=== PATIENT | female | born 1995 | race African-American/Black ===

== ENCOUNTER → 2016-11-27 | Outpatient (CLI) | payer SELFPAY | LOC: RAD 13:59 | PROVIDERS: ATTEND Nurse Practitioner Women's Health | DX: Z34.82 Encounter for supervision of other normal pregnancy, second trimester (principal) | CPT/HCPCS: 76805 ==

== ENCOUNTER 2017-07-17 10:09 | Emergency (ER) | payer MEDICAID ==
--- NOTE | 2017-07-17 10:25 | ER Document Report ---
ED Medical Screen (RME) - General Chief Complaint: Vaginal Bleeding Stated Complaint: VAGINAL BLEEDING Time Seen by Provider: 07/17/17 10:22 Mode of Arrival: Ambulatory Information source: Patient, Friend TRAVEL OUTSIDE OF THE [place] IN LAST 30 DAYS: No - HPI Patient complains to provider of: vaginal bleeding Onset: This morning - pt had positive HPT last week and woke up this am and went to the bathroom and had vaginal bleding with clots - Related Data Allergies/Adverse Reactions: No Known Allergies Allergy (Verified 07/17/17 10:13) Past Medical History Renal/ Medical History: Denies: Hx Peritoneal Dialysis - Immunizations Immunizations up to date: Yes Hx Diphtheria, Pertussis, Tetanus Vaccination: Yes - 09/2013 Physical Exam - Vital signs Vitals: Temp Pulse Resp BP Pulse Ox 98.5 F 88 35 H 119/73 98 07/17/17 10:13 07/17/17 10:13 07/17/17 10:13 07/17/17 10:13 07/17/17 10:13 Course - Vital Signs Vital signs: Temp Pulse Resp BP Pulse Ox 98.5 F 88 35 H 119/73 98 07/17/17 10:13 07/17/17 10:13 07/17/17 10:13 07/17/17 10:13 07/17/17 10:13
[2017-07-17 10:57] LABS: ABSOLUTE BASOPHILS # (AUTO) 0.1 10^3/uL (0.0-0.2); ABSOLUTE EOSINOPHILS # (AUTO) 0.1 10^3/uL (0.0-0.6); ABSOLUTE LYMPHOCYTES (AUTO) 1.3 10^3/uL (0.5-4.7); ABSOLUTE MONOCYTES (AUTO) 0.4 10^3/uL (0.1-1.4); BASOPHILS % (AUTO) 1.3 % (0-2); EOSINOPHILS % (AUTO) 1.1 % (0-6); HEMATOCRIT 31.7 % (36.0-47.0); HEMOGLOBIN 9.8 g/dL (12.0-15.5); HGB HCT DIFFERENCE -2.3; LYMPHOCYTES % (AUTO) 26.3 % (13-45); MEAN CORPUSCULAR HEMOGLOBIN 23.7 pg (27.0-33.4); MEAN CORPUSCULAR HGB CONC 30.8 g/dL (32.0-36.0); MEAN CORPUSCULAR VOLUME 77 fl (80-97); MONOCYTES % (AUTO) 9.3 % (3-13); RED BLOOD COUNT 4.12 10^6/uL (3.72-5.28); WHITE BLOOD COUNT 4.8 10^3/uL (4.0-10.5)
[2017-07-17 11:04] LABS: ALANINE AMINOTRANSFERASE 19 U/L (9-52); ALBUMIN 4.5 g/dL (3.5-5.0); ALKALINE PHOSPHATASE 51 U/L (38-126); ANION GAP 12 (5-19); ASPARTATE AMINO TRANSFERASE 19 U/L (14-36); BILIRUBIN,DIRECT 0.3 mg/dL (0.0-0.4); BILIRUBIN,TOTAL 0.5 mg/dL (0.2-1.3); BLOOD UREA NITROGEN 10 mg/dL (7-20); CARBON DIOXIDE 27 mmol/L (22-30); CHLORIDE 104 mmol/L (98-107); CREATININE RESULT 0.65 mg/dL (0.52-1.25); GLUCOSE 94 mg/dL (75-110); POTASSIUM 3.9 mmol/L (3.6-5.0); SODIUM 142.9 mmol/L (137-145); TOTAL PROTEIN 7.6 g/dL (6.3-8.2)
[2017-07-17 13:07] LABS: APPEARANCE,URINE CLEAR; BILIRUBIN,URINE NEGATIVE (NEGATIVE); GLUCOSE, URINE NEGATIVE (NEGATIVE); KETONES,URINE NEGATIVE (NEGATIVE); LEUKOCYTE ESTERASE,URINE NEGATIVE (NEGATIVE); NITRITE,URINE NEGATIVE (NEGATIVE); PROTEIN,URINE NEGATIVE (NEGATIVE); URINE SPECIFIC GRAVITY 1.003; UROBILINOGEN,URINE NEGATIVE mg/dL (<2.0)
--- NOTE | 2017-07-17 13:15 | ER Document Report ---
ED General - General Chief Complaint: Vaginal Bleeding Stated Complaint: VAGINAL BLEEDING Time Seen by Provider: 07/17/17 10:22 Mode of Arrival: Ambulatory TRAVEL OUTSIDE OF THE [place] IN LAST 30 DAYS: No - HPI Patient complains to provider of: Vaginal bleeding Notes: Patient coming in for evaluation of vaginal bleeding. Patient states started day prior to arrival with multiple clots. Patient states that positive home test. Patient states last mental cycle approximately 4 weeks ago. Patient denies any fevers chills nausea vomiting diarrhea. Patient is resting comfortably upon my evaluation. - Related Data Allergies/Adverse Reactions: No Known Allergies Allergy (Verified 07/17/17 10:13) Past Medical History - General Information source: Patient, Friend - Social History Smoking Status: Never Smoker Chew tobacco use (# tins/day): No Frequency of alcohol use: None Drug Abuse: None Family History: Reviewed & Not Pertinent Renal/ Medical History: Denies: Hx Peritoneal Dialysis - Immunizations Immunizations up to date: Yes Hx Diphtheria, Pertussis, Tetanus Vaccination: Yes - 09/2013 Review of Systems - Review of Systems Constitutional: No symptoms reported EENT: No symptoms reported Cardiovascular: No symptoms reported Respiratory: No symptoms reported Gastrointestinal: No symptoms reported Genitourinary: No symptoms reported Female Genitourinary: Vaginal bleeding Musculoskeletal: No symptoms reported Skin: No symptoms reported Hematologic/Lymphatic: No symptoms reported Neurological/Psychological: No symptoms reported -: Yes All other systems reviewed and negative Physical Exam - Vital signs Vitals: Temp Pulse Resp BP Pulse Ox 98.5 F 88 35 H 119/73 98 07/17/17 10:13 07/17/17 10:13 07/17/17 10:13 07/17/17 10:13 07/17/17 10:13 Interpretation: Normal - General General appearance: Appears well, Alert - HEENT Head: Normocephalic, Atraumatic Eyes: Normal Pupils: PERRL - Respiratory Respiratory status: No respiratory distress Chest status: Nontender Breath sounds: Normal Chest palpation: Normal - Cardiovascular Rhythm: Regular Heart sounds: Normal auscultation Murmur: No - Abdominal Inspection: Normal Distension: No distension Bowel sounds: Normal Tenderness: Nontender Organomegaly: No organomegaly - Back Back: Normal, Nontender - Extremities General upper extremity: Normal inspection, Nontender, Normal color, Normal ROM , Normal temperature General lower extremity: Normal inspection, Nontender, Normal color, Normal ROM , Normal temperature, Normal weight bearing. No: Sandeep's sign - Neurological Neuro grossly intact: Yes Cognition: Normal Orientation: AAOx4 [place] Coma Scale Eye Opening: Spontaneous [place] Coma Scale Verbal: Oriented [place] Coma Scale Motor: Obeys Commands Vipul Coma Scale Total: 15 Speech: Normal Motor strength normal: LUE, RUE, LLE, RLE Sensory: Normal - Psychological Associated symptoms: Normal affect, Normal mood - Skin Skin Temperature: Warm Skin Moisture: Dry Skin Color: Normal Course - Re-evaluation Re-evalutation: 07/17/17 15:20 Patient shows chronic anemia however baseline for the patient. No signs of . More likely patient is beginning her initial cycle. Patient will be given Bentyl Motrin for pain control at home patient was discharged without any difficulty. The patient presents with abdominal pain without signs of peritonitis or other life-threatening or serious etiology. The patient appears stable for discharge and has been instructed to return immediately if the symptoms worsen in any way, or in 8-12hr if not improved for re-evaluation. The patient has been instructed to return if the symptoms worsen or change in any way. - Vital Signs Vital signs: Temp Pulse Resp BP Pulse Ox 98.4 F 80 18 120/77 100 07/17/17 13:30 07/17/17 13:30 07/17/17 13:30 07/17/17 13:30 07/17/17 13:30 - Laboratory Result Diagrams: 07/17/17 10:40 07/17/17 10:40 Laboratory results interpreted by me: 07/17/17 07/17/17 10:40 12:46 Hgb 9.8 L Hct 31.7 L MCV 77 L MCH 23.7 L MCHC 30.8 L RDW 16.0 H Urine Blood MODERATE H Discharge - Discharge Clinical Impression: Vaginal bleeding Condition: Good Disposition: HOME, SELF-CARE Instructions: Anti-Inflammatory Medication ([facility]), Vaginal Bleeding ([facility]) Additional Instructions: Take medication as prescribed your laboratory values today show no signs of or changes in your anemia however 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 Return to the ER symptoms worsen. Prescriptions: Ibuprofen [Motrin 600 mg Tablet] 600 mg PO Q8HP PRN #90 tablet PRN Reason: Dicyclomine HCl [Bentyl 20 mg Tablet] 20 mg PO QID #20 tablet Forms: Return to Work
[2017-07-17 13:31] VITALS: BP 120/77
== END 2017-07-17 13:31 | disposition home or self-care (01) ==
LOC: ER 10:09
DX: N93.8 Other specified abnormal uterine and vaginal bleeding (principal)
CPT/HCPCS: 36415; 51701; 80053; 81001; 81025; 84702; 85025; 99284

== ENCOUNTER 2018-06-11 22:15 | Emergency (ER) | payer SELFPAY ==
[2018-06-11] MEDS ORDERED: ACETAMINOPHEN 325 MG TABLET PO ONE (23:42)
--- NOTE | 2018-06-11 23:44 | ER Document Report ---
ED Medical Screen (RME) - General Chief Complaint: Passed Out Prior to Arrival Stated Complaint: PASSING OUT Time Seen by Provider: 06/11/18 23:41 Mode of Arrival: Ambulatory Information source: Patient Notes: 22-year-old female presents to ED for complaint of passing out at [employer]. She states she walked into the [employer] store and she felt like she was getting very hot and sweaty. She states she tried to drink her drink more before she could she woke up sitting on the floor. She states everybody in the [employer] saw her pass out. She now has pain in her left side of her face abrasion to the left fifth finger with pain in the finger and pain in her left knee. She is alert oriented respirations regular and unlabored speaking in full sentences and walking with a even steady gait while in the emergency room. She states she has no past medical history except for low iron. She states she is eating [employer] since she passed out. She does have a small abrasion to the fifth finger. She is tender to touch to the left side of her face. States she does not smoke does not drink does not use drugs and does not work. She states she lives alone with her child. I have greeted and performed a rapid initial assessment of this patient. A comprehensive ED assessment and evaluation of the patient, analysis of test results and completion of medical decision making process will be conducted by an additional ED providers. TRAVEL OUTSIDE OF THE [place] IN LAST 30 DAYS: No - Related Data Allergies/Adverse Reactions: No Known Allergies Allergy (Verified 07/17/17 10:13) Past Medical History Renal/ Medical History: Denies: Hx Peritoneal Dialysis - Immunizations Immunizations up to date: Yes Hx Diphtheria, Pertussis, Tetanus Vaccination: Yes - 09/2013 Physical Exam - Vital signs Vitals: Temp Pulse Resp BP Pulse Ox 98.9 F 88 16 113/55 L 100 06/11/18 22:48 06/11/18 22:48 06/11/18 22:48 06/11/18 22:48 06/11/18 22:48 Course - Vital Signs Vital signs: Temp Pulse Resp BP Pulse Ox 98.9 F 88 16 113/55 L 100 06/11/18 22:48 06/11/18 22:48 06/11/18 22:48 06/11/18 22:48 06/11/18 22:48
[2018-06-12 00:54] LABS: ABSOLUTE BASOPHILS # (AUTO) 0.1 10^3/uL (0.0-0.2); ABSOLUTE MONOCYTES (AUTO) 0.5 10^3/uL (0.1-1.4); ABSOLUTE NEUT (AUTO) 7.3 10^3/uL (1.7-8.2); BASOPHILS % (AUTO) 0.6 % (0-2); EOSINOPHILS % (AUTO) 0.1 % (0-6); HEMATOCRIT 32.6 % (36.0-47.0); HEMOGLOBIN 10.4 g/dL (12.0-15.5); MEAN CORPUSCULAR HEMOGLOBIN 24.1 pg (27.0-33.4); MEAN CORPUSCULAR VOLUME 75 fl (80-97); MONOCYTES % (AUTO) 5.8 % (3-13); PLATELET COUNT 269 10^3/uL (150-450); RED BLOOD COUNT 4.33 10^6/uL (3.72-5.28); RED CELL DISTRIBUTION WIDTH 18.4 % (11.5-14.0); SEGMENTED NEUTROPHILS % (AUTO) 82.5 % (42-78); TOTAL CELLS COUNTED % (AUTO) 100 %; WHITE BLOOD COUNT 8.8 10^3/uL (4.0-10.5)
[2018-06-12] MEDS ORDERED: NORMAL SALINE 1000 ML 1,000 ML IV ONE ×2 (01:04→01:52)
[2018-06-12 01:05] LABS: ALANINE AMINOTRANSFERASE 11 U/L (9-52); ALBUMIN 4.5 g/dL (3.5-5.0); ALKALINE PHOSPHATASE 55 U/L (38-126); ANION GAP 16 (5-19); ASPARTATE AMINO TRANSFERASE 20 U/L (14-36); BILIRUBIN,DIRECT 0.2 mg/dL (0.0-0.4); BILIRUBIN,TOTAL 1.2 mg/dL (0.2-1.3); BLOOD UREA NITROGEN 9 mg/dL (7-20); CALCIUM 9.5 mg/dL (8.4-10.2); CARBON DIOXIDE 19 mmol/L (22-30); CHLORIDE 100 mmol/L (98-107); GLUCOSE 236 mg/dL (75-110); POTASSIUM 3.8 mmol/L (3.6-5.0); SODIUM 135.3 mmol/L (137-145); TOTAL PROTEIN 8.1 g/dL (6.3-8.2)
[2018-06-12 01:20] LABS: APPEARANCE,URINE SLIGHTLY-CLOUDY; BILIRUBIN,URINE NEGATIVE (NEGATIVE); COLOR,URINE YELLOW; GLUCOSE, URINE >=500 mg/dL (NEGATIVE); KETONES,URINE 80 mg/dL (NEGATIVE); LEUKOCYTE ESTERASE,URINE SMALL (NEGATIVE); NITRITE,URINE NEGATIVE (NEGATIVE); PROTEIN,URINE NEGATIVE (NEGATIVE)
--- NOTE | 2018-06-12 02:11 | ER Document Report ---
ED Syncope and Near Syncope - General Mode of Arrival: Ambulatory Information source: Patient TRAVEL OUTSIDE OF THE [place] IN LAST 30 DAYS: No <SHEELA LAIRD - Last Filed: 06/12/18 02:56> <NAT BARRON - Last Filed: 06/12/18 03:37> - General Chief Complaint: Passed Out Prior to Arrival Stated Complaint: PASSING OUT Time Seen by Provider: 06/11/18 23:41 Notes: Patient is a 22-year-old female that presents to the emergency department today with complaints of a syncopal episode that occurred prior to arrival. Patient is and she mentions that in the past when she was she had syncopal events. Patient states she has had associated nausea and vomiting as well. (SHEELA LAIRD) - Related Data Allergies/Adverse Reactions: No Known Allergies Allergy (Verified 06/12/18 01:41) Past Medical History - General Information source: Patient - Social History Smoking Status: Current Every Day Smoker Cigarette use (# per day): Yes Frequency of alcohol use: None Drug Abuse: None Family History: Reviewed & Not Pertinent Patient has suicidal ideation: No Patient has homicidal ideation: No Renal/ Medical History: Denies: Hx Peritoneal Dialysis Surgical Hx: Negative - Immunizations Immunizations up to date: Yes Hx Diphtheria, Pertussis, Tetanus Vaccination: Yes - 09/2013 <SHEELA LAIRD - Last Filed: 06/12/18 02:56> Review of Systems - Review of Systems Constitutional: No symptoms reported EENT: No symptoms reported Cardiovascular: See HPI, Syncope Respiratory: No symptoms reported Gastrointestinal: See HPI, Nausea, Vomiting Genitourinary: No symptoms reported Female Genitourinary: No symptoms reported Musculoskeletal: No symptoms reported Skin: No symptoms reported Hematologic/Lymphatic: No symptoms reported Neurological/Psychological: denies: Headaches -: Yes All other systems reviewed and negative <SHEELA LAIRD - Last Filed: 06/12/18 02:56> Physical Exam <SHEELA LAIRD - Last Filed: 06/12/18 02:56> <NAT BARRON - Last Filed: 06/12/18 03:37> - Vital signs Vitals: Temp Pulse Resp BP Pulse Ox 98.9 F 88 16 113/55 L 100 06/11/18 22:48 06/11/18 22:48 06/11/18 22:48 06/11/18 22:48 06/11/18 22:48 - Notes Notes: Physical Exam: General: Alert, appears well. HEENT: Normocephalic. Atraumatic. PERRL. Extraocular movements intact. Oropharynx clear. Dry mucous membranes. Neck: Supple. Non-tender. Respiratory: No respiratory distress. Clear and equal breath sounds bilaterally. Cardiovascular: Regular rate and rhythm. Abdominal: Normal Inspection. Non-tender. No distension. Normal Bowel Sounds. Back: Non-tender. No deformity or step off. Extremities: Moves all four extremities. Upper extremities: Normal inspection. Normal ROM. Lower extremities: Normal inspection. No edema. Normal ROM. Neurological: Normal cognition. AAOx4. Normal speech. Psychological: Normal affect. Normal Mood. Skin: Warm. Dry. Normal color. (SHEELA LAIRD) Course - Laboratory Result Diagrams: 06/11/18 23:52 06/11/18 23:52 <SHEELA LAIRD - Last Filed: 06/12/18 02:56> - Laboratory Result Diagrams: 06/11/18 23:52 06/11/18 23:52 <NAT BARRON - Last Filed: 06/12/18 03:37> - Re-evaluation Re-evalutation: 06/12/18 03:34 Patient is a 22-year-old female who comes in after syncopal episode. Patient has 80+ ketones in urine and clinically appears dehydrated. She is feeling much better after fluids and taking p.o. Patient is approximately 6 weeks by dates and has been nauseated with this . Denies any bleeding or cramping. Would prefer to go home at this time. Will be discharged home with Reglan as needed for nausea. Return if any worsening or concerning symptoms. Understands agrees with plan. Stable for discharge. ( NAT BARRON) - Vital Signs Vital signs: Temp Pulse Resp BP Pulse Ox 98.9 F 88 16 113/55 L 100 06/11/18 22:48 06/11/18 22:48 06/11/18 22:48 06/11/18 22:48 06/11/18 22:48 - Laboratory Laboratory results interpreted by me: 06/11/18 06/11/18 06/11/18 23:47 23:52 23:52 Hgb 10.4 L Hct 32.6 L MCV 75 L MCH 24.1 L RDW 18.4 H Seg Neutrophils % 82.5 H Lymphocytes % 11.0 L Sodium 135.3 L Carbon Dioxide 19 L Glucose 236 H POC Glucose 271 H Serum HCG, Qual Urine Glucose (UA) Urine Ketones Urine Blood Urine Urobilinogen Ur Leukocyte Esterase 06/11/18 06/11/18 23:52 23:52 Hgb Hct MCV MCH RDW Seg Neutrophils % Lymphocytes % Sodium Carbon Dioxide Glucose POC Glucose Serum HCG, Qual POSITIVE H Urine Glucose (UA) >=500 H Urine Ketones 80 H Urine Blood SMALL H Urine Urobilinogen 4.0 H Ur Leukocyte Esterase SMALL H Discharge <SHEELA LAIRD - Last Filed: 06/12/18 02:56> <NAT BARRON - Last Filed: 06/12/18 03:37> - Discharge Clinical Impression: Dehydration Qualifiers: Weeks of gestation: less than 8 weeks Qualified Code(s): Z3A.01 - Less than 8 weeks gestation of Condition: Stable Disposition: HOME, SELF-CARE Instructions: ([facility]), Dehydration ([facility]) Prescriptions: Metoclopramide HCl [Reglan 10 mg Tablet] 1 - 2 tab PO ASDIR PRN #25 tablet PRN Reason: Forms: Return to Work Referrals: DOROTHY YOUNG MD [Primary Care Provider] - Follow up as needed Scribe Attestation: 06/12/18 03:36 I personally performed the services described in the documentation, reviewed and edited the documentation which was dictated to the scribe in my presence, and it accurately records my words and actions. (NAT BARRON) Scribe Documentation - Scribe Written by Pabloe:: Destiny Christina, 06/12/2018 [id number] acting as scribe for :: Ann <SHEELA LAIRD - Last Filed: 06/12/18 02:56>
[2018-06-12] MEDS ORDERED: ONDANSETRON ODT 4 MG TAB (6 TAB/ER DISP) PO PRN (03:34)
[2018-06-12 03:42] VITALS: BP 100/47
== END 2018-06-12 03:43 | disposition home or self-care (01) ==
LOC: ER 22:15
DX: O99.281 Endocrine, nutritional and metabolic diseases complicating pregnancy, first trimester (principal); E86.0 Dehydration; O21.9 Vomiting of pregnancy, unspecified; O26.891 Other specified pregnancy related conditions, first trimester; R55 Syncope and collapse; O99.331 Smoking (tobacco) complicating pregnancy, first trimester; F17.210 Nicotine dependence, cigarettes, uncomplicated; Z3A.01 Less than 8 weeks gestation of pregnancy
CPT/HCPCS: 99284; 96360; 96361; 36415; 82962; 84702; 84703; 85025; 80053; 81001; J7030

== ENCOUNTER 2018-08-12 00:01 | Emergency (ER) | payer SELFPAY ==
--- NOTE | 2018-08-12 01:25 | ER Document Report ---
ED General - General Mode of Arrival: Ambulatory Information source: Patient TRAVEL OUTSIDE OF THE [place] IN LAST 30 DAYS: No - General Chief Complaint: Headache Stated Complaint: WEAKNESS Time Seen by Provider: 08/12/18 01:12 Notes: Patient is a 23-year-old female, currently approximately 16 weeks presents to the emergency department complaining of a headache, nausea and lightheadedness. Patient states that she was in [employer] yesterday when she began to feel lightheaded due to the heat and had to sit down before proceeding to get groceries. Patient describes her headache as a tightness. Patient denies any chest pain, abdominal pain, vomiting, vaginal discharge, burning with urination or urinary frequency. Patient is . She states she is currently prescribed iron supplements but has recently ran out. (MARIAH KNAPP) - Related Data Allergies/Adverse Reactions: No Known Allergies Allergy (Verified 06/12/18 01:41) Past Medical History - General Information source: Patient - Social History Smoking Status: Unknown if Ever Smoked Family History: Reviewed & Not Pertinent - Immunizations Immunizations up to date: Yes Hx Diphtheria, Pertussis, Tetanus Vaccination: Yes - 09/2013 Review of Systems - Review of Systems Constitutional: No symptoms reported EENT: No symptoms reported Cardiovascular: See HPI, Lightheaded Respiratory: No symptoms reported Gastrointestinal: See HPI, Nausea Genitourinary: No symptoms reported Female Genitourinary: No symptoms reported Musculoskeletal: No symptoms reported Skin: No symptoms reported Hematologic/Lymphatic: No symptoms reported Neurological/Psychological: See HPI, Headaches Physical Exam - Vital signs Vitals: Temp Pulse Resp BP Pulse Ox 98.8 F 110 H 16 100/53 L 100 08/12/18 00:07 08/12/18 00:07 08/12/18 00:07 08/12/18 00:07 08/12/18 00:07 - Notes Notes: GENERAL: Alert, interacts well. No acute distress. HEAD: Normocephalic, atraumatic. EYES: Pupils equal, round, and reactive to light. Extraocular movements intact. ENT: Oral mucosa dry, tongue midline. NECK: Full range of motion. Supple. Trachea midline. LUNGS: Clear to auscultation bilaterally, no wheezes, rales, or rhonchi. No respiratory distress. HEART: Regular rate and rhythm. No murmurs, gallops, or rubs. ABDOMEN: Soft, non-tender. Non-distended. Bowel sounds present in all 4 quadrants. EXTREMITIES: Moves all 4 extremities spontaneously. Radial pulses 2/4 bilaterally. NEUROLOGICAL: Alert and oriented x3. Normal speech. PSYCH: Normal affect, normal mood. SKIN: Warm, dry, normal turgor. No rashes or lesions noted. (MARIAH KNAPP) Course - Re-evaluation Re-evalutation: 08/12/18 02:30 Patient well-appearing in no acute distress normal vitals during my exam. No abdominal pain or dysuria. Urine shows no signs of infection but will send off culture. Fluids provide emergency department as oral mucous membranes were mildly dry. Will provide Reglan for patient for antinausea medication. 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 Return to the emergency department for any other concerns Prescriptions: Metoclopramide HCl [Reglan 10 mg Tablet] 1 tab PO ASDIR PRN #25 tablet PRN Reason: Scribe Attestation: 08/12/18 22:05 I personally performed the services described in the documentation, reviewed and edited the documentation which was dictated to the scribe in my presence, and it accurately records my words and actions. (ESTRELLA CORTES) Scribe Documentation - Scribe Written by Destiny:: Destiny Ward, 08/12/2018 01:29 acting as scribe for :: Manny
[2018-08-12 02:16] LABS: APPEARANCE,URINE CLEAR; BILIRUBIN,URINE NEGATIVE (NEGATIVE); COLOR,URINE YELLOW; GLUCOSE, URINE NEGATIVE (NEGATIVE); KETONES,URINE NEGATIVE (NEGATIVE); LEUKOCYTE ESTERASE,URINE LARGE (NEGATIVE); NITRITE,URINE NEGATIVE (NEGATIVE); PROTEIN,URINE NEGATIVE (NEGATIVE); URINE SPECIFIC GRAVITY 1.003; UROBILINOGEN,URINE NEGATIVE mg/dL (<2.0)
[2018-08-12] MEDS: NORMAL SALINE 1000 ML 1,000 ML IV PRN ×2 (02:33→03:07)
[2018-08-12 04:04] VITALS: BP 117/87
== END 2018-08-12 04:08 | disposition home or self-care (01) ==
LOC: ER 00:01
DX: O99.280 Endocrine, nutritional and metabolic diseases complicating pregnancy, unspecified trimester (principal); E86.0 Dehydration; O26.899 Other specified pregnancy related conditions, unspecified trimester; R51 Headache; R11.0 Nausea; R42 Dizziness and giddiness; Z3A.00 Weeks of gestation of pregnancy not specified
CPT/HCPCS: 99285; 96360; 96361; 87086; 81001; J7030

== ENCOUNTER → 2018-09-19 | Outpatient (CLI) | payer SELFPAY ==
--- NOTE | 2018-09-19 13:48 | RADIOLOGY REPORT (SQ) ---
EXAM DESCRIPTION: U/S OB 14+ TRNABD 1GES W/O DOP COMPLETED DATE/TIME: 09/19/2018 1:21 pm REASON FOR STUDY: Z34.82 ENCOUNTER FOR SUPRVSN OF NORMAL , SECOND TRIMESTER Z34.82 ENCOUNT ER FOR SUPRVSN OF NORMAL , SECOND TRI COMPARISON: No previous this TECHNIQUE: Static and Dynamic grayscale imaging performed of gravid uterus using transabdominal appr oach. Additional selected color Doppler and spectral images recorded. All stored on PACS. LIMITATIONS: None. FINDINGS: FETUSES SEEN:1 EGA: 20 weeks 5 days Calculated using BPD,FL,HC,AC documented on images. No discrepancy with clinica l dates. TIFFANY: 02/01/2019 EFW: 364 grams PERCENTILE: Not calculated LEFTY: Largest pocket 4.9 cm PLACENTA: Developing anterior grade 1. No abruption or previa PRESENTATION: Cephalic. ANATOMY: HEART RATE: 162 beats per minute. FOUR CHAMBER HEART: Visualized. THREE VESSEL CORD: Yes. CORD INSERTION: Visualized. KIDNEYS AND BLADDER: Visualized. Appear normal. STOMACH: Visualized. Appears normal. SPINE: Normal as visualized. BRAIN AND LATERAL VENTRICLES: Limited visualization due to orientation OTHER: No other significant finding. MATERNAL ADNEXA: Maternal ovaries not visualized. CERVICAL LENGTH: 2.7 cm Closed. OTHER: No other significant finding. IMPRESSION: LIVING INTRAUTERINE . ESTIMATED GESTATIONAL AGE 20 weeks 5 days NO VISUALIZED ANOMALIES. Trimester of : Second trimester - 13 weeks 1 day to 27 weeks 6 days. TECHNICAL DOCUMENTATION: JOB ID: [id number] [employer]- All Rights Reserved Reading location - IP/workstation name: [facility]
== END ==
LOC: RAD 13:08
PROVIDERS: ATTEND Nurse Practitioner
DX: Z34.82 Encounter for supervision of other normal pregnancy, second trimester (principal)
CPT/HCPCS: 76805

== ENCOUNTER 2018-12-22 01:45 | Outpatient (CLI) | payer MEDICAID ==
[2018-12-22 02:25] LABS: APPEARANCE,URINE CLEAR; BILIRUBIN,URINE NEGATIVE (NEGATIVE); COLOR,URINE YELLOW; GLUCOSE, URINE NEGATIVE (NEGATIVE); KETONES,URINE NEGATIVE (NEGATIVE); LEUKOCYTE ESTERASE,URINE NEGATIVE (NEGATIVE); NITRITE,URINE NEGATIVE (NEGATIVE); PROTEIN,URINE NEGATIVE (NEGATIVE); URINE SPECIFIC GRAVITY 1.006
[2018-12-22 02:38] LABS: URINE AMPHETAMINES SCREEN NEGATIVE; URINE BARBITURATES SCREEN NEGATIVE; URINE BENZODIAZEPINES SCREEN NEGATIVE; URINE COCAINE SCREEN NEGATIVE; URINE MARIJUANA (THC) SCREEN NEGATIVE; URINE METHADONE SCREEN NEGATIVE; URINE PHENCYCLIDINE SCREEN NEGATIVE
--- NOTE | 2018-12-22 04:13 | Non Stress Test Report ---
Non Stress Test Datetime Report Generated by CPN: 12/22/2018 04:13 DEMOGRAPHIC Test Number: 1 EGA NST: 34.2 INDICATION Indication for Study: Ordered by Provider MONITORING Monitor Explained: Monitor Explained; Test Explained; Patient Verbalized Understanding Time on Monitor: 12/22/2018 02:04 Time off Monitor: 12/22/2018 02:50 NST Duration: 46 NST INTERVENTIONS NST Interventions: PO Hydration Physician Notified NST: Dr Guerra BABY A: [id number] BABY A Movement : Present Contraction Frequency : irregular FHR Baseline : 135 Accelerations : 15X15 Decelerations : None Variability : Moderate 6-25bpm NST Review: Meets Criteria for Reactive NST NST Review and Verified By : SONYA Ackerman NST Results: Reactive NST REPORT Report Trigger: Send Report
== END 2018-12-22 04:10 | disposition home or self-care (01) ==
LOC: LC 01:45
PROVIDERS: ATTEND Obstetrics & Gynecology
PROC: 4A1HXCZ Monitoring of Products of Conception, Cardiac Rate, External Approach (ICD-10-PCS; principal; 2018-12-22)
DX: O46.93 Antepartum hemorrhage, unspecified, third trimester (principal); O47.03 False labor before 37 completed weeks of gestation, third trimester; Z3A.34 34 weeks gestation of pregnancy
CPT/HCPCS: 59025; 80307; 81001

== ENCOUNTER 2019-01-24 03:16 | Inpatient (IN) | payer MEDICAID ==
[~2019-01-24 03:16] MED LIST: IRON DEXTRAN COMPLEX 25 MG in SYRINGE, DISPOSABLE, 1 EACH IV PRN; IRON DEXTRAN COMPLEX 975 MG in NORMAL SALINE 500 ML IV PRN; NORMAL SALINE 250 ML IV PRN
[2019-01-24 03:48] LABS: APPEARANCE,URINE CLEAR; BILIRUBIN,URINE NEGATIVE (NEGATIVE); COLOR,URINE YELLOW; GLUCOSE, URINE NEGATIVE (NEGATIVE); KETONES,URINE NEGATIVE (NEGATIVE); LEUKOCYTE ESTERASE,URINE TRACE (NEGATIVE); NITRITE,URINE NEGATIVE (NEGATIVE); PROTEIN,URINE NEGATIVE (NEGATIVE); UROBILINOGEN,URINE NEGATIVE mg/dL (<2.0)
[2019-01-24 04:07] LABS: URINE AMPHETAMINES SCREEN NEGATIVE; URINE BARBITURATES SCREEN NEGATIVE; URINE BENZODIAZEPINES SCREEN NEGATIVE; URINE COCAINE SCREEN NEGATIVE; URINE MARIJUANA (THC) SCREEN NEGATIVE; URINE METHADONE SCREEN NEGATIVE; URINE PHENCYCLIDINE SCREEN NEGATIVE
--- NOTE | 2019-01-24 04:08 | Non Stress Test Report ---
Non Stress Test Datetime Report Generated by CPN: 01/24/2019 04:08 DEMOGRAPHIC Test Number: 2 EGA NST: 39.0 INDICATION Indication for Study: Ordered by Provider URINE RESULTS Urine Protein, NST: Negative Urine Ketones - NST: Negative Urine Glucose - NST: Negative Urine Blood - NST: Negative MONITORING Monitor Explained: Monitor Explained; Test Explained; Patient Verbalized Understanding Time on Monitor: 01/24/2019 03:31 Time off Monitor: 01/24/2019 04:02 NST Duration: 31 NST INTERVENTIONS NST Interventions: PO Hydration; Reposition Patient Physician Notified NST: Dr. Younger BABY A: [id number] BABY A Movement : Present Contraction Frequency : 4-5.5 FHR Baseline : 135 Accelerations : 15X15 Decelerations : None Variability : Moderate 6-25bpm NST Review: Meets Criteria for Reactive NST NST Review and Verified By : Vanda Garsia RN NST Results: Reactive NST REPORT Report Trigger: Send Report
[2019-01-24] MEDS ORDERED: RINGERS SOLUTION,LACTATED 1,000 ML IV ONE (05:26)
[2019-01-24] MEDS ORDERED: RINGERS SOLUTION,LACTATED 1,000 ML IV PRN (05:26)
[2019-01-24] MEDS ORDERED: PENICILLIN G POTASSIUM 5,000,000 UNIT in DEXTROSE 5%-WATER 100 ML IV ONE (05:26)
[2019-01-24] MEDS ORDERED: MISOPROSTOL 0.2 MG TABLET ONE (05:27)
[2019-01-24] MEDS ORDERED: PENICILLIN G-K 5 MILLION UNIT VIAL ONE ×2 (05:28→09:51)
[2019-01-24] MEDS ORDERED: LIDOCAINE 1% INJ-PF (10 MG/ML) 30 ML SDV ONE (05:28)
[2019-01-24] MEDS ORDERED: OXYTOCIN/NORMAL SALINE 20 UNIT/1,000 ML RTUINJ ONE (05:28)
[2019-01-24 06:54] LABS: ABSOLUTE LYMPHOCYTES (AUTO) 1.1 10^3/uL (0.5-4.7); ABSOLUTE MONOCYTES (AUTO) 0.8 10^3/uL (0.1-1.4); ABSOLUTE NEUT (AUTO) 4.7 10^3/uL (1.7-8.2); BASOPHILS % (AUTO) 0.5 % (0-2); EOSINOPHILS % (AUTO) 0.7 % (0-6); HEMATOCRIT 29.8 % (36.0-47.0); HEMOGLOBIN 9.8 g/dL (12.0-15.5); LYMPHOCYTES % (AUTO) 16.6 % (13-45); MEAN CORPUSCULAR HEMOGLOBIN 26.2 pg (27.0-33.4); MEAN CORPUSCULAR HGB CONC 32.9 g/dL (32.0-36.0); MEAN CORPUSCULAR VOLUME 80 fl (80-97); MONOCYTES % (AUTO) 11.7 % (3-13); PLATELET COUNT 156 10^3/uL (150-450); RED BLOOD COUNT 3.74 10^6/uL (3.72-5.28); RED CELL DISTRIBUTION WIDTH 22.5 % (11.5-14.0); SEGMENTED NEUTROPHILS % (AUTO) 70.5 % (42-78); TOTAL CELLS COUNTED % (AUTO) 100 %; WHITE BLOOD COUNT 6.6 10^3/uL (4.0-10.5)
--- NOTE | 2019-01-24 07:34 | Admission Physical ---
Datetime Report Generated by CPN: 01/24/2019 07:34 CURRENT ADMISSION Chief Complaint: Uterine Contractions Indication for Induction: Not Applicable Admit Impression : Term, Intrauterine ; Active Labor Admit Plan: Admit to Unit; Initiate Labor Protocol ALLERGIES Medication Allergies: No Medication Allergies: No Known Allergies (01/24/2019) Latex: No Latex Allergies OBSTETRICAL HISTORY EDC: 01/31/2019 00:00 : 3 Para: 2 Term: 2 : 0 SAB: 0 IAB: 0 Ectopic: 0 Livin Cesareans: 0 VBACs: 0 Multiple Births: 0 Gestational Diabetes: No Rh Sensitization: No Incompetent Cervix: No DARRELL: No Infertility: No ART Treatment: No Uterine Anomaly: No IUGR: No Hx Previous C/S: No Macrosomia: No Hx Loss/Stillborn: No PIH: No Hx : No Placenta Previa/Abruption: No Depression/PP Depression: Yes PTL/PROM: No Post Hemorrhage: No Current Procedures: Ultrasound; NST Obstetrical History Comments: G1-01/02/14 female @ 39.1wks 6lbs 11oz G2-03/22/17 female @ term 5lbs 11oz G3-Current SEE RECORDS Alcohol: No Marijuana : No Cocaine: No Other Illicit Drugs: No Cigarettes: Never Smoker. [id number] MEDICAL HISTORY Diabetes: No Blood Transfusion: No Pulmonary Disease (Asthma, TB): No Breast Disease: No Hypertension: No Tube Builder Surgery: No Heart Disease: No Hosp/Surgery: Yes Autoimmune Disorder: No Anesthetic Complications: No Kidney Disease: No Abnormal Pap Smear: No Neuro/Epilepsy: No Psychiatric Disorders: No Other Medical Diseases: Yes Hepatitis/Liver Disease: No Significant Family History: No Varicosities/Phlebitis: No Trauma/Violence : No Thyroid Dysfunction: No Medical History Comments: Childbirth x 2; Hx PPD, Anemia-gets iron transfusions INFECTIOUS HISTORY Gonorrhea: No Genital Herpes: No Chlamydia: Yes Tuberculosis: No Syphilis: No Hepatitis: No HIV/AIDS Exposure: No Rash or Viral Illness: No HPV: No Infectious History Comments: Chlamydia-08/2018-SURAJ negative; PHYSICAL EXAM General: Normal HEENT: Normal Neurologic: Normal Thyroid: Normal Heart: Normal Lungs: Normal Breast: Normal Back: Normal Abdomen: Normal Genitourinary Exam: Normal Extremities: Normal DTRs: Normal Pelvic Type: Adequate Vital Signs: Reviewed; Within Normal Limits VAGINAL EXAM Dilatation: 5 Effacement: 80 Station: -2 Contraction Comments: q 6 min MEMBRANES Membranes: Intact FETUS A EGA: 39.0 Monitoring: External US FHR- Baseline: 120-130s Variability: Moderate 6-25bpm Accelerations: 15X15 Decelerations: None FHR Category: Category I Admit Comment: Pt presented tp L_D c/o contractions. Her cervical exam was 3 cm upon arrival. She walked and progressed to 5 cm. GBS Positive. PLANS FOR LABOR AND DELIVERY Labor and Delivery: None Pain Management: Epidural Feeding Preference: Both Benefit of Breast Feed Discussed: Yes Circumcision: No INFORMED CONSENT Signature: with User ID: [email or web address]
[2019-01-24] MEDS ORDERED: LIDOCAINE 1.5%/EPINEPHRINE INJ 5 ML AMP ONE (08:36)
[2019-01-24] MEDS ORDERED: FENTANYL/BUPIVACAINE/NS/PF 300 MCG/150 ML RTUINJ EPI ONE (08:36)
[2019-01-24] MEDS ORDERED: BUPIVACAINE HCL 0.25 % INJ/PF (2.5 MG/1 ML) 30 ML VIAL ONE (08:36)
[2019-01-24] MEDS ORDERED: EPHEDRINE SULFATE INJ 50 MG/1 ML AMPULE ONE (08:36)
[2019-01-24] MEDS ORDERED: PENICILLIN G POTASSIUM 2,500,000 UNIT in DEXTROSE 5%-WATER 50 ML IV SCH (09:28)
--- NOTE | 2019-01-24 10:14 | L&D Progress Notes ---
PROGRESS NOTES Datetime Report Generated by CPN: 01/24/2019 10:14 PROGRESS NOTE Impression: Normal Progression of Labor; Reactive Non Stress Test Procedures: Artificial ROM; Sterile Vag Exam Plan: Continue Present Management; Augmentation Informed Consent Obtained: Vaginal Delivery Vital Signs : Reviewed; Within Normal Limits Comment: VE= 4-5/70/vt/0, AROM clear fluid,comfortable with epidural, irreg uc's. Cat 1 strip Plan: Start Pitocin augmentation, monitor, anticipate VAGINAL EXAM Dilatation: 5 Effacement: 80 Station: -2 Contractions: q 6 min LAST VAGINAL EXAM-NURSING Dilitation: 4.5 Dilitation: 5.0 Dilitation: 3.5 Dilitation: 3.0 Dilitation: 3.0 Effacement: 70 Effacement: 80 Effacement: 75 Effacement: 60 Effacement: 60 Station: 0 Station: -2 Station: -2 Station: -2 Station: -2 Contractions: irritability Contractions: irritability Contractions: irritability Contractions: irritability MEMBRANES Membranes: Intact FETUS A Monitoring: External US : 39.0 SIGNATURE SIGNATURE: [id number];[id number];[id number] SIGNATURE: [id number];[id number] SIGNATURE: [id number] SIGNATURE: [id number] Assignment: Elizabeth La MD Signature: with User ID: [email or web address] : with User ID: [email or web address]
[2019-01-24] MEDS ORDERED: OXYTOCIN/NORMAL SALINE 20 UNIT/1,000 ML RTUINJ IV PRN ×2 (11:13→14:00)
[2019-01-24] MEDS ORDERED: TERBUTALINE SULFATE INJ/PF 1 MG/1 ML SDV ONE (12:35)
[2019-01-24] MEDS ORDERED: METHYLERGONOVINE MALEATE INJ/PF 0.2 MG/1 ML AMPULE ONE (13:38)
[2019-01-24] MEDS ORDERED: METHYLERGONOVINE MALEATE INJ/PF 0.2 MG/1 ML AMPULE IM ONE (13:38)
[2019-01-24] MEDS ORDERED: PROMETHAZINE HCL 25 MG SUPP.RECT PR PRN (14:00)
[2019-01-24] MEDS ORDERED: BENZOCAINE/MENTHOL AEROSOL SPRAY 56 ML TOP PRN (14:00)
[2019-01-24] MEDS ORDERED: PROMETHAZINE HCL 25 MG TABLET PO PRN (14:00)
[2019-01-24] MEDS ORDERED: NA PHOS,M-B/NA PHOS,DI-BA (ADULT) 133 ML ENEMA PR PRN (14:00)
[2019-01-24] MEDS ORDERED: MISOPROSTOL 0.2 MG TABLET PR PRN (14:00)
[2019-01-24] MEDS ORDERED: ACETAMINOPHEN 650 MG SUPP.RECT PR PRN (14:00)
[2019-01-24] MEDS ORDERED: MAGNESIUM HYDROXIDE SUSP 30 ML UDCUP PO PRN (14:00)
[2019-01-24] MEDS ORDERED: GLYCERIN/WITCH HAZEL LEAF 1 EACH MED..PAD TP PRN (14:00)
[2019-01-24] MEDS ORDERED: DIPH/PERTUSS(ACELL)/TETANUS VAC/PF 0.5 ML SYR (>=10YO) IM PRN (14:00)
[2019-01-24] MEDS ORDERED: PSEUDOEPHEDRINE HCL 30 MG TABLET PO PRN (14:00)
[2019-01-24] MEDS ORDERED: DIPHENHYDRAMINE HCL 25 MG CAPSULE PO PRN (14:00)
[2019-01-24] MEDS ORDERED: PROMETHAZINE HCL INJ 25 MG/1 ML VIAL IV PRN (14:00)
[2019-01-24] MEDS ORDERED: DIBUCAINE 1% OINTMENT 56 GM TP PRN (14:00)
[2019-01-24] MEDS ORDERED: ACETAMINOPHEN WITH CODEINE #3 TABLET PO PRN ×2 (14:00)
[2019-01-24] MEDS ORDERED: MEASLES,MUMPS&RUBELLA VACC/PF 0.5 ML VIAL SUBCUT PRN (14:00)
[2019-01-24] MEDS ORDERED: METHYLERGONOVINE MALEATE INJ/PF 0.2 MG/1 ML AMPULE IM PRN (14:00)
--- NOTE | 2019-01-24 15:57 | Delivery Summary ---
Del Sum A-C Datetime Report Generated by CPN: 01/24/2019 15:56 DELIVERY PERSONNEL DELIVERY PERSONNEL: [id number] Delivery Doctor:: Elizabeth La MD Nurse Switch Foreman Certified:: Margaux Robledo CNM Labor and Delivery Nurse:: Artis Cheney RNafter school program director Nurse:: Dilma Gallegos RN Nursery Nurse:: Irene Vazquez RN Nursery Nurse:: Barbie James RN Student Observers:: Temitope HYLTON RN Aviculturist/ROPE TWISTING MACHINE OPERATOR: Tamiko Smith CNA II Additional Personnel: : Kayla Cardenas, RNC MATERNAL INFORMATION Delivery Anesthesia: Epidural Medications After Delivery: Pitocin Bolus-Please Comment; Methergine 0.2mg IM; Other-Please Comment Meds After Delivery Comment: Pitocin 20 units in 1000 ml nss open for bolus, cytotec 1000 mcg placed rectally per provider Maternal Complications: None Provider Comments: Care of patient to [facility] after delivery of baby, spont delivery of grossly nl intact placenta with calcifications, cord blood to lab, uterine atony resolved with massage, 1000mcg of cytotec, Pitocin and Methergine 0.2 mg IM, atony resolved, superficial lacerations not requiring suture, cervix intact, baby doing well, crying and moving all extremeties well, baby in recovery in stable condition LABOR SUMMARY EDC: 01/31/2019 00:00 No. Babies in Womb: 1 Attempted: No Labor Anesthesia: Epidural LABOR INFORMATION Reason for Induction: Not Applicable Onset of Labor: 01/24/2019 10:04 Complete Dilatation: 01/24/2019 12:40 Oxytocin: Augmentation Group B Beta Strep: Positive Antibiotics # of Doses: 2 Antibiotics Time of Last Dose: 944 Name of Antibiotic Given: Penicillin Steroids Given: None Reason Steroids Not Administered: Not Applicable MEMBRANES Membranes Rupture Method: Artificial Rupture of Membranes: 01/24/2019 10:04 Length of Rupture (hr): 3.42 Amniotic Fluid Color: Clear Amniotic Fluid Amount: Small Amniotic Fluid Odor: Normal STAGES OF LABOR Stage 1 hr: 2 Stage 1 min: 36 Stage 2 hr: 0 Stage 2 min: 49 Stage 3 hr: 0 Stage 3 min: 0 Total Time in Labor hr: 3 Total Time in Labor min: 25 VAGINAL DELIVERY Episiotomy: None Laceration #1: None Laceration Extension #1: N/A Laceration Repair: No Sponge Count Correct: N/A Sharps Count Correct: N/A CSECTION DELIVERY Primary Indication: N/A Secondary Indication: N/A CSection Incidence: N/A Labor: N/A Elective: N/A CSection Incision: N/A BABY A INFORMATION Delivery Date/Time: 01/24/2019 13:29 Method of Delivery: Vaginal Born in Route : No : N/A Forceps: N/A Vacuum Extraction: Successful Shoulder Dystocia : No PRESENTATION/POSITION BABY A Presentation: Cephalic Cephalic Presentation: Vertex Vertex Position: Right Occipital Anterior Breech Presentation: N/A PLACENTA INFORMATION BABY A Placenta Delivery Time : 01/24/2019 13:29 Placenta Method of Delivery: Spontaneous Placenta Status: Delivered SCORES BABY A Heart Rate 1 min: >100 bpm Resp Effort 1 min: Good Cry Reflex Irritability 1 min: Cough or Sneeze or Pulls Away Muscle Tone 1 min: Active Motion Color 1 min: Blue/Pale Resuscitation Effort 1 min: Tactile Stimulation SCORE 1 MIN: 8 Heart Rate 5 min: >100 bpm Resp Effort 5 min: Good Cry Reflex Irritability 5 min: Cough or Sneeze or Pulls Away Muscle Tone 5 min: Active Motion Color 5 min: Body [place], Extremities Blue Resuscitation Effort 5 min: N/A SCORE 5 MIN: 9 Resuscitation Effort 10 min: N/A INFORMATION BABY A Gestational Age at Delivery: 39.0 Gestational Status: Full Term- 39- 40.6 Weeks Outcome : Liveborn Infant Condition : Stable Sex: Male IDENTIFICATION BABY A Infant Verification Date/Time: 01/24/2019 14:35 ID Band Number: [id number] Mother's Name Verified: Yes RN Verifying Infant: J OZARD, RN/ BL ROULUND, RN WEIGHT/LENGTH BABY A Birthweight (gm): 2810 Weight (lb): 6 Infant Weight (oz): 3 Infant Length (in): 19.25 Infant Length (cm): 48.90 CORD INFORMATION BABY A No. Cord Vessels: 3 Nuchal Cord : N/A Cord Blood Taken: Yes-For Storage (Mom's Blood type +) Suction: None ASSESSMENT BABY A Complications: Extended Bradycardia; Multiple Late Decels; Multiple Variable Decels Skin to Skin: Yes BABY B INFORMATION : N/A SIGNATURES Assignment: Elizabeth La MD Signature: with User ID: [email or web address] : with User ID: [email or web address]
[2019-01-24] MEDS: FERROUS SULFATE 325 MG TABLET PO SCH (17:31)
[2019-01-24] MEDS: DOCUSATE SODIUM 100 MG CAPSULE PO SCH (17:31)
[2019-01-24] MEDS ORDERED: FAMOTIDINE 20 MG TABLET PO SCH (22:00)
[2019-01-24] MEDS: IBUPROFEN 800 MG TABLET PO SCH (22:18)
[2019-01-25] MEDS: IBUPROFEN 800 MG TABLET PO SCH ×3 (06:06→21:28)
[2019-01-25 08:27] LABS: HEMATOCRIT 28.1 % (36.0-47.0); HEMOGLOBIN 9.2 g/dL (12.0-15.5); MEAN CORPUSCULAR HEMOGLOBIN 26.1 pg (27.0-33.4); MEAN CORPUSCULAR HGB CONC 32.7 g/dL (32.0-36.0); MEAN CORPUSCULAR VOLUME 80 fl (80-97); PLATELET COUNT 144 10^3/uL (150-450); RED BLOOD COUNT 3.52 10^6/uL (3.72-5.28); RED CELL DISTRIBUTION WIDTH 22.9 % (11.5-14.0); WHITE BLOOD COUNT 7.6 10^3/uL (4.0-10.5)
--- NOTE | 2019-01-25 08:51 | PDOC PROGRESS REPORT ---
Subjective-OB Progress Note for:: 01/25/19 Physical Exam (OB) Vital Signs: Temp Pulse Resp BP Pulse Ox 97.4 F 77 16 105/55 L 98 01/25/19 07:23 01/25/19 07:23 01/25/19 07:23 01/25/19 07:23 01/25/19 07:23 Intake & Output 01/24/19 01/25/19 01/26/19 06:59 06:59 06:59 Intake Total 200 Balance 200 Weight 70.8 kg - PIH/Pre-Eclampsia DTR's: 2 + Clonus: Negative Headache: Absent Epigastric Pain: No Visual Changes: No - Lochia Lochia Amount: Scant < 10 ml Lochia Color: Rubra/Red - Abdomen Description: Soft, Round Hernia Present: No Bowel Sounds: Normoactive Flatus Presence: Present Stool: No Fundal Description: Firm, Midline Fundal Height: u/u - u/2 Objective-Diagnostic Laboratory: 01/25/19 07:50 01/25/19 07:50 WBC 7.6 RBC 3.52 L Hgb 9.2 L Hct 28.1 L MCV 80 MCH 26.1 L MCHC 32.7 RDW 22.9 H Plt Count 144 L
[2019-01-25] MEDS: DOCUSATE SODIUM 100 MG CAPSULE PO SCH ×2 (09:58→17:11)
[2019-01-25] MEDS: PRENATAL VITAMIN W DHA CAPSULE PO SCH (09:58)
[2019-01-25] MEDS: FERROUS SULFATE 325 MG TABLET PO SCH ×2 (09:58→17:11)
[2019-01-25] MEDS ORDERED: (PENDING PHARMACY ID) (Prenatal No122/Iron/Folic Acid [Prenatal Multi Tablet] 1 TAB) PO SCH (10:00)
[2019-01-25] MEDS ORDERED: SENNOSIDES/DOCUSATE 8.6-50 MG 1 EACH TABLET PO SCH (10:00)
[2019-01-26] MEDS: IBUPROFEN 800 MG TABLET PO SCH ×2 (05:03→13:19)
[2019-01-26 09:51] VITALS: BP 111/66
[2019-01-26] MEDS: DOCUSATE SODIUM 100 MG CAPSULE PO SCH (09:57)
[2019-01-26] MEDS: FERROUS SULFATE 325 MG TABLET PO SCH (09:57)
[2019-01-26] MEDS: PRENATAL VITAMIN W DHA CAPSULE PO SCH (09:57)
--- NOTE | 2019-01-26 10:59 | PDOC DISCHARGE SUMMARY ---
Final Diagnosis Discharge Date: 01/26/19 - Final Diagnosis (1) Anemia Is this a current diagnosis for this admission?: Yes (2) Delivery normal Is this a current diagnosis for this admission?: Yes (3) History of depression Is this a current diagnosis for this admission?: No Discharge Data - Discharge Medication Prescriptions: Ibuprofen [Motrin 800 mg Tablet] 800 mg PO Q8HP PRN #60 tablet PRN Reason: Home Medications: No122/Iron/Folic Acid [ Multi Tablet] 1 tab PO DAILY 12/22/18 Ferrous Sulfate [Feosol 325 mg Tablet] 325 mg PO BID tablet 01/26/19 Ibuprofen [Motrin 800 mg Tablet] 800 mg PO Q8HP PRN #60 tablet 01/26/19 Procedures: NST Intrapartum Procedure(s): Spontaneous Vaginal Delivery - Diagnosis Test Laboratory: Temp Pulse Resp BP Pulse Ox 98.4 F 66 20 111/66 100 01/26/19 09:50 01/26/19 09:50 01/26/19 09:50 01/26/19 09:50 01/26/19 09:50 01/24/19 01/24/19 01/25/19 03:28 06:33 07:50 RBC 3.74 3.52 L Hgb 9.8 L 9.2 L Hct 29.8 L 28.1 L Urine Opiates Screen NEGATIVE - Discharge information/Instructions Discharge Activity: Balance Activity w/Rest, Pelvic Rest Discharge Diet: Regular Disposition: HOME, SELF-CARE Follow up with: [facility] in: 4, Weeks
[2019-01-26] MEDS ORDERED: MEDROXYPROGESTERONE ACET INJ 150 MG/1 ML VIAL IM ONE (11:30)
== END 2019-01-26 15:55 | disposition home or self-care (01) | DRG 807 ==
LOC: LC 03:16 → LR 05:29 → 2S 16:05
PROVIDERS: ADMIT Obstetrics & Gynecology; ATTEND Obstetrics & Gynecology
PROC: 10E0XZZ Delivery of Products of Conception, External Approach (ICD-10-PCS; principal; 2019-01-24)
DX: O99.824 Streptococcus B carrier state complicating childbirth (principal); Z37.0 Single live birth; O76 Abnormality in fetal heart rate and rhythm complicating labor and delivery; O75.89 Other specified complications of labor and delivery; Z3A.39 39 weeks gestation of pregnancy
CPT/HCPCS: 36415; 59025; 80307; 81005; 85025; 85027; 86592; 86850; 86900; 86901; J1050; J1750; J2210; J2540; J2590; J3010; J3105; J3490; J7040

== ENCOUNTER 2019-05-27 15:21 | Emergency (ER) | payer SELFPAY ==
[2019-05-27] MEDS ORDERED: ACETAMINOPHEN 325 MG TABLET PO ONE (15:58)
--- NOTE | 2019-05-27 16:04 | ER Document Report ---
ED Medical Screen (RME) - General Chief Complaint: Abdominal Pain Stated Complaint: ABDOMINAL PAIN Time Seen by Provider: 05/27/19 15:49 Primary Care Provider: DONNA RAY APRN [Primary Care Provider] - Follow up as needed Notes: 23-year-old female presents the emergency department with chief complaint of sharp abdominal pain in her upper and lower stomach, headache, back pain x2 days. She initially thought she had food poisoning because she may have gotten some old food from [employer] but she has not had any vomiting or diarrhea. She says that the pain is located in different parts of her abdomen depending on her position. The pain is described as crampy and like having a contraction. Patient states she tried to drink a little bit of cranberry juice on the way here and that seems to have reduce the pain a little bit. She said her headache is global and persistent. She has tried to take ibuprofen for it. She denies fevers or chills, shortness of breath or chest pain, denies nausea or vomiting, very symptoms or abnormal vaginal discharge. LMP started 2 days ago. Last bowel movement 05/26/2019. I have greeted and performed a rapid initial assessment of this patient. A comprehensive ED assessment and evaluation of the patient, analysis of test results and completion of medical decision making process will be conducted by an additional ED providers. TRAVEL OUTSIDE OF THE [place] IN LAST 30 DAYS: No - Related Data Allergies/Adverse Reactions: No Known Allergies Allergy (Verified 05/27/19 15:22) Past Medical History - Social History Chew tobacco use (# tins/day): No Frequency of alcohol use: None Drug Abuse: None Renal/ Medical History: Denies: Hx Peritoneal Dialysis - Immunizations Immunizations up to date: Yes Hx Diphtheria, Pertussis, Tetanus Vaccination: Yes - 09/2013 Physical Exam - Vital signs Vitals: Temp Pulse Resp BP Pulse Ox 98.5 F 120 H 18 111/65 98 05/27/19 15:25 05/27/19 15:25 05/27/19 15:25 05/27/19 15:25 05/27/19 15:25 - Notes Notes: PHYSICAL EXAMINATION: Reviewed vital signs and charting by RN GENERAL: Alert, interacts well. No acute distress. HEAD: Normocephalic, atraumatic. EYES: Pupils equal and round. Extraocular movements intact. ENT: Oral mucosa moist, tongue midline. NECK: Full range of motion. Trachea midline. LUNGS: Clear to auscultation bilaterally, no wheezes, rales, or rhonchi. No respiratory distress. HEART: Regular rate and rhythm. No murmur ABDOMEN: Deferred in triage EXTREMITIES: Moves all 4 extremities spontaneously. No edema, No cyanosis. PSYCH: Normal affect, normal mood. SKIN: Warm, dry, normal turgor. No rashes or lesions noted. Course - Vital Signs Vital signs: Temp Pulse Resp BP Pulse Ox 98.5 F 120 H 18 111/65 98 05/27/19 15:25 05/27/19 15:25 05/27/19 15:25 05/27/19 15:25 05/27/19 15:25 Doctor's Discharge - Discharge Referrals: DONNA RAY, ELI [Primary Care Provider] - Follow up as needed
[2019-05-27 16:39] LABS: APPEARANCE,URINE SLIGHTLY-CLOUDY; BILIRUBIN,URINE NEGATIVE (NEGATIVE); GLUCOSE, URINE NEGATIVE (NEGATIVE); KETONES,URINE 20 mg/dL (NEGATIVE); LEUKOCYTE ESTERASE,URINE NEGATIVE (NEGATIVE); NITRITE,URINE NEGATIVE (NEGATIVE); PROTEIN,URINE 30 mg/dL (NEGATIVE); URINE SPECIFIC GRAVITY 1.025
[2019-05-27 16:40] LABS: COLOR,URINE DARK YELLOW
[2019-05-27 18:43] LABS: ABSOLUTE LYMPHOCYTES (AUTO) 0.7 10^3/uL (0.5-4.7); ABSOLUTE MONOCYTES (AUTO) 0.6 10^3/uL (0.1-1.4); ABSOLUTE NEUT (AUTO) 4.5 10^3/uL (1.7-8.2); BASOPHILS % (AUTO) 0.4 % (0-2); HEMATOCRIT 35.9 % (36.0-47.0); LYMPHOCYTES % (AUTO) 11.6 % (13-45); MEAN CORPUSCULAR HGB CONC 33.4 g/dL (32.0-36.0); MEAN CORPUSCULAR VOLUME 81 fl (80-97); MONOCYTES % (AUTO) 10.2 % (3-13); PLATELET COUNT 158 10^3/uL (150-450); RED BLOOD COUNT 4.44 10^6/uL (3.72-5.28); RED CELL DISTRIBUTION WIDTH 14.1 % (11.5-14.0); SEGMENTED NEUTROPHILS % (AUTO) 77.8 % (42-78); TOTAL CELLS COUNTED % (AUTO) 100 %; WHITE BLOOD COUNT 5.8 10^3/uL (4.0-10.5)
[2019-05-27 18:58] LABS: ALANINE AMINOTRANSFERASE 26 U/L (9-52); ALBUMIN 3.8 g/dL (3.5-5.0); ALKALINE PHOSPHATASE 63 U/L (38-126); ANION GAP 9 (5-19); ASPARTATE AMINO TRANSFERASE 24 U/L (14-36); BILIRUBIN,DIRECT 0.2 mg/dL (0.0-0.4); BILIRUBIN,TOTAL 0.5 mg/dL (0.2-1.3); BLOOD UREA NITROGEN 6 mg/dL (7-20); CALCIUM 9.4 mg/dL (8.4-10.2); CARBON DIOXIDE 25 mmol/L (22-30); CHLORIDE 103 mmol/L (98-107); GLUCOSE 97 mg/dL (75-110); POTASSIUM 3.4 mmol/L (3.6-5.0); SODIUM 136.5 mmol/L (137-145); TOTAL PROTEIN 6.9 g/dL (6.3-8.2)
[2019-05-27 21:01] VITALS: BP 118/59
--- NOTE | 2019-05-27 21:50 | ER Document Report ---
Entered by MARIAH KNAPP SCRIBE 05/27/19 180 Acting as scribe for:SUNITHA HAQUE DO ED General - General Chief Complaint: Abdominal Pain Stated Complaint: ABDOMINAL PAIN Time Seen by Provider: 05/27/19 15:49 Primary Care Provider: DONNA RAY APRN [NO LOCAL MD] - Follow up as needed Mode of Arrival: Ambulatory Information source: Patient Notes: Patient is a 23-year-old female presenting to the emergency department complaining of abdominal pain onset 2 nights ago. Patient describes the abdominal pain as a sharpness located on the right side. She states she initially attributed her symptoms to possible food poisoning then attributed to period cramps due to recently receiving her menstrual cycle. She states the pain is still present. She also complains of some nausea. She denies any burning with urination, diarrhea, vomiting, chest pain, trouble breathing, sore throat, rhinorrhea, earaches or sick contacts. TRAVEL OUTSIDE OF THE [place] IN LAST 30 DAYS: No - Related Data Allergies/Adverse Reactions: No Known Allergies Allergy (Verified 05/27/19 15:22) Past Medical History - General Information source: Patient - Social History Smoking Status: Never Smoker Cigarette use (# per day): No Chew tobacco use (# tins/day): No Smoking Education Provided: No Frequency of alcohol use: None Drug Abuse: None Family History: Reviewed & Not Pertinent Patient has suicidal ideation: No Patient has homicidal ideation: No - Immunizations Immunizations up to date: Yes Hx Diphtheria, Pertussis, Tetanus Vaccination: Yes - 09/2013 Review of Systems - Review of Systems Constitutional: No symptoms reported EENT: No symptoms reported Cardiovascular: No symptoms reported Respiratory: No symptoms reported Gastrointestinal: See HPI, Abdominal pain, Nausea Genitourinary: No symptoms reported Female Genitourinary: No symptoms reported Musculoskeletal: No symptoms reported Skin: No symptoms reported Hematologic/Lymphatic: No symptoms reported Neurological/Psychological: No symptoms reported -: Yes All other systems reviewed and negative Physical Exam - Vital signs Vitals: Temp Pulse Resp BP Pulse Ox 98.5 F 120 H 18 111/65 98 05/27/19 15:25 05/27/19 15:25 05/27/19 15:25 05/27/19 15:25 05/27/19 15:25 - Notes Notes: GENERAL: Alert, interacts well. No acute distress. HEAD: Normocephalic, atraumatic. EYES: Pupils equal, round, and reactive to light. Extraocular movements intact. ENT: Oral mucosa moist, tongue midline. NECK: Full range of motion. Supple. Trachea midline. LUNGS: Clear to auscultation bilaterally, no wheezes, rales, or rhonchi. No respiratory distress. HEART: 2/6 systolic ejection murmur, no gallops or rubs. ABDOMEN: Soft, RUQ and RLQ tenderness palpation. Non-distended. Bowel sounds present in all 4 quadrants. No guarding, rigidity, or rebound. EXTREMITIES: Moves all 4 extremities spontaneously. NEUROLOGICAL: Alert and oriented x3. Normal speech. PSYCH: Normal affect, normal mood. SKIN: Warm, dry, normal turgor. No rashes or lesions noted. BACK: No CVA tenderness to percussion. Course - Re-evaluation Re-evalutation: 05/27/19 20:56 CBC unremarkable, CMP shows slight low sodium at 136.5, potassium slightly low at 3.4, these have no significant impact on her presentation, CMP otherwise un remarkable, urinalysis shows large blood but is likely contaminated with her menstruation, there are 3 squamous epithelial cells. Patient has no flank pain, no symptoms suggestive of a kidney stone. test is negative. No evidence of urinary tract infection. Repeat examination of her abdomen reveals suprapubic abdominal pain but no further right lower quadrant pain, also states that she needs to urinate well and she thinks that was causing her discomfort on examination. Patient will be discharged home, has been encouraged to return in 24 hours or sooner if your pain worsens. Patient is aware that we cannot completely rule out appendicitis without a CAT scan however clinically I do not think a CAT scan is indicated at this time and would prefer to follow with watchful waiting. Patient is agreeable to this plan. - Vital Signs Vital signs: Temp Pulse Resp BP Pulse Ox 98.5 F 120 H 18 111/65 98 05/27/19 15:25 05/27/19 15:25 05/27/19 15:25 05/27/19 15:25 05/27/19 15:25 - Laboratory Result Diagrams: 05/27/19 18:22 05/27/19 18:22 Laboratory results interpreted by me: 05/27/19 05/27/1905/27/19 16:19 18:22 18:22 Hct 35.9 L RDW 14.1 H Lymphocytes % 11.6 L Sodium 136.5 L Potassium 3.4 L BUN 6 L Urine Protein 30 H Urine Ketones 20 H Urine Blood LARGE H Urine Urobilinogen 4.0 H Discharge - Discharge Clinical Impression: Suprapubic abdominal pain Condition: Stable Disposition: HOME, SELF-CARE Additional Instructions: Observation for Appendicitis At this time, the abdominal pain does not seem to be appendicitis. Our next "test" will be passage of time. If you have early appendicitis, signs will appear to help us make the diagnosis. Most of the time, the pain goes away. In these cases, the pain is usually due to a virus in the lymph glands near the appendix, or due to an ovarian cyst or ovulation. Unless the pain is gone, you should come back for a recheck. This is usually done in 12-24 hours. Be sure you understand your follow-up instructions. Come back immediately if: (1) the pain becomes much more severe and sharply increases with movement or coughing, (2) vomiting becomes frequent, (3) there is blood in the vomit, urine, or bowel movements, (4) there are shaking chills or fever, or (5) the abdomen becomes more distended or swollen. Referrals: DONNA RAY APRN [NO LOCAL MD] - Follow up as needed I personally performed the services described in the documentation, reviewed and edited the documentation which was dictated to the scribe in my presence, and it accurately records my words and actions.
== END 2019-05-27 21:10 | disposition home or self-care (01) ==
LOC: ER 15:21
DX: R10.9 Unspecified abdominal pain (principal); R11.0 Nausea
CPT/HCPCS: 36415; 80053; 81001; 81025; 85025; 99284

== ENCOUNTER 2019-08-05 20:36 | Emergency (ER) | payer SELFPAY ==
[2019-08-05] MEDS ORDERED: ACETAMINOPHEN 325 MG TABLET PO ONE (22:08)
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
[2019-08-06 01:16] VITALS: BP 115/59
== END 2019-08-06 01:16 | disposition home or self-care (01) ==
LOC: ER 20:36
DX: S69.91XA Unspecified injury of right wrist, hand and finger(s), initial encounter (principal); X58.XXXA Exposure to other specified factors, initial encounter; S99.911A Unspecified injury of right ankle, initial encounter; X50.0XXA Overexertion from strenuous movement or load, initial encounter
CPT/HCPCS: 99283; 73610; 73110; 29125; L1902